=== PATIENT | female | born 1965 | race African-American/Black ===

== ENCOUNTER → 2024-11-29 | Day surgery (SDC) | payer BC, MEDICARE ==
[~2024-11-29] MED LIST: DEXAMETHASONE SOD PHOS INJ 4 MG/ML SDV ONE; FENTANYL CITRATE/PF 100MCG/2 ML INJ ONE; FISH OIL 1,0001 EAC7 PO; GARLIC1000 MG PO; HYDROCODON-ACE1 EAC9 PO; KETOROLAC TROMETHAMINE 30 MG/ML VIAL ONE; LIDOCAINE HCL 2% LOCAL INJ 5 ML SDV VIAL INJ ONE; OMEPRAZOLE40 MG PO; ONDANSETRON HCL INJ 2MG/ML 2ML 2 MG/ML VIAL ONE; PREDNISONE10 MG PO; PREDNISONE20 MG PO; PROPOFOL IV EMULSION 10 MG/ML 20 ML VIAL ONE; ROSUVASTATIN CA10 MG PO; VENLAFAXINE HCL75 MG PO
[2024-11-29] MEDS: LACTATED RINGER'S 1,000 ML ONE (07:49)
[2024-11-29] MEDS: HYDROMORPHONE 1MG/1ML INJ ONE (10:25)
[2024-11-29 11:00] VITALS: BP 148/76; PULSE 78; RESP 17; O2SAT 98
== END | disposition home or self-care (01) ==
LOC: OR 06:09
PROVIDERS: ATTEND Plastic Surgery
DX: G56.02 Carpal tunnel syndrome, left upper limb (principal); G56.22 Lesion of ulnar nerve, left upper limb; I10 Essential (primary) hypertension; Z79.899 Other long term (current) drug therapy; Z01.810 Encounter for preprocedural cardiovascular examination
CPT/HCPCS: 64718; 64721; 93005; J0690; J1100; J1171; J1885; J2003; J2405; J2704; J3010; J7121